=== PATIENT | female | born 1940 | race Caucasian/White ===

== ENCOUNTER → 2016-08-22 | Outpatient (CLI) | payer MEDICARE, OTHER ==
[~2016-08-22] MED LIST: ACETAMINOPHEN PO; ALLOPURINOL300 MG PO; AMITRIPTYLINE H25 MG PO; AMITRYPTYLINE PO; ASPIRIN; ASPIRIN PO; ASPIRIN81 M2 PO; CHEWABLE ASPIRI81 MG PO; COLCHICINE PO; COUMADIN; COUMADIN PO; COUMADIN3 MG PO; DARVOCET-N 1001 TAB PO; EFFEXOR-XR150 MG PO; FUROSEMIDE40 MG PO; HYDROCODON-ACE1 EACH PO; LANOXIN PO; LANOXIN125 MCG PO; LASIX PO; LEVAQUIN PO; LEVOTHYROXINE175 MCG PO; LIPITOR; LIPITOR PO; LIPITOR40 MG PO; LISINOPRIL PO; LOPRESSOR PO; LOPRESSOR100 MG PO; LOSARTAN POTASS50 MG PO; METOPROLOL-HCTZ1 TA3; METOPROLOL/HCTZ PO; MULTI VITAMIN1 EACH PO; NORVASC; PAROXETINE HCL40 MG PO; SYNTHROID; SYNTHROID PO; TYLENOL325 M1 PO; UNITHROID200 MCG PO; VISTARIL PO; VITAMIN B122500 MCG PO; ZOLOFT; ZOLOFT PO; ZYLOPRIM PO
--- NOTE | ~2016-08-22 | CR63 ---
[facility] A Service of [facility] & [facility] RADIOLOGY TEXT RESULTS PATIENT: CHARLES KRUSE LOCATION: [facility] : 42 UNIT #: [id number] AGE: [address]: Aretha Hall MD SEX: F ORDER DR: [id number] [facility] [address] [place], [place] [address] [id number] O MR#: [id number] Acc #: [id number] NAME: CHARLES KRUSE. : 1940 SEX: F STUDY DATE/TIME: 08/22/2016 13:52 UNIT: [facility] ROOM: STUDY DESCRIPTION: CR Chest 2 View Attending Physician: Aretha Hall M.D. Referring Physician: Aretha Hall M.D. Ordering Physician: Aretha Hall M.D. Primary Care Physician: [facility] RE[facility] This report is preliminary unless electronic signature is present EXAM Chest, PA and lateral, 08/22/2016 COMPARISON 06/01/2015 HISTORY Heart failure, shortness of breath, symptoms for 2 days, cough. FINDINGS PA and lateral views are obtained. Heart size is borderline enlarged. The vascular pattern is normal. Lungs are clear. There is a calcified granuloma in the left apex. There has been interim removal of the transvenous pacing device. CONCLUSION 1. Borderline cardiac size. No active disease. 2. Interim removal of the left-sided pacing device. Dictated by... Phil Thakkar M.D. THIS IS AN ELECTRONICALLY VERIFIED REPORT Phil Thakkar M.D. at 08/24/2016 3:10 PM DANIEL/jett TD: 08/22/2016 18:29 JOB #: [id number] MEDICAL IMAGING REPORT Page 1 of 1 COPY
== END | disposition home or self-care (01) ==
LOC: CRAD 13:10
DX: R06.02 Shortness of breath (principal); I49.5 Sick sinus syndrome
CPT/HCPCS: 71020